=== PATIENT | male | born 1970 | race African-American/Black ===

== ENCOUNTER 2017-12-26 21:27 | Emergency (ER) | payer SELFPAY ==
[2017-12-26] MEDS ORDERED: ALBUTEROL SULFATE HFA (90 MCG/PUFF) 8 GM MDI (1 MDI/ER DISP) IH PRN (22:28)
[2017-12-26] MEDS ORDERED: DEXAMETHASONE 4 MG TABLET PO ONE (22:28)
[2017-12-26] MEDS ORDERED: BENZONATATE 100 MG CAPSULE PO ONE (22:28)
--- NOTE | 2017-12-26 23:40 | ER Document Report ---
ED General - General Chief Complaint: Cough Stated Complaint: COUGH, DIFFICULTY BREATHING Time Seen by Provider: 12/26/17 22:26 Notes: Patient is a 47-year-old male with past medical history of hypertension who presents with several days of cough. He reports that sometimes he coughs so vigorously he feels like he cannot breathe. Patient states that symptoms came on relatively abruptly and have been constant since that time. Nothing improves or worsens his symptoms. He denies a history of similar symptoms in the past. Admits to occasional tobacco use but denies any formal diagnosis of COPD or asthma in the past. He has not seen his primary care doctor regarding today's concerns. He denies any associated fever, headache, vomiting, diarrhea or altered mental status. TRAVEL OUTSIDE OF THE [place] IN LAST 30 DAYS: No - Related Data Allergies/Adverse Reactions: No Known Allergies Allergy (Unverified 12/22/14 21:16) Past Medical History - General Information source: Patient - Social History Smoking Status: Current Some Day Smoker Frequency of alcohol use: None Drug Abuse: None Lives with: Alone Family History: Reviewed & Not Pertinent Patient has suicidal ideation: No Patient has homicidal ideation: No - Past Medical History Cardiac Medical History: Reports: Hx Hypercholesterolemia, Hx Hypertension Endocrine Medical History: Reports: Hx Diabetes Mellitus Type 1 Renal/ Medical History: Denies: Hx Peritoneal Dialysis - Immunizations Hx Diphtheria, Pertussis, Tetanus Vaccination: Yes Review of Systems - Review of Systems Notes: Constitutional: Negative for fever. HENT: Negative for sore throat. Eyes: Negative for visual changes. Cardiovascular: Negative for chest pain. Respiratory: Positive for persistent cough and shortness of breath Gastrointestinal: Negative for abdominal pain, vomiting or diarrhea. Genitourinary: Negative for dysuria. Musculoskeletal: Negative for back pain. Skin: Negative for rash. Neurological: Negative for headaches, weakness or numbness. 10 point ROS negative except as marked above and in HPI. Physical Exam - Vital signs Vitals: Temp Pulse Resp BP Pulse Ox 99.1 F 110 H 20 145/85 H 96 12/26/17 21:38 12/26/17 21:38 12/26/17 21:38 12/26/17 21:38 12/26/17 21:38 Interpretation: Tachycardic Notes: PHYSICAL EXAMINATION: GENERAL: Well-appearing, well-nourished and in no acute distress. HEAD: Atraumatic, normocephalic. EYES: Pupils equal round and reactive to light, extraocular movements intact, sclera anicteric, conjunctiva are normal. ENT: nares patent, oropharynx clear without exudates. Moist mucous membranes. NECK: Normal range of motion, supple without lymphadenopathy LUNGS: Breath sounds clear to auscultation bilaterally and equal. No wheezes rales or rhonchi. HEART: Regular rate and rhythm without murmurs ABDOMEN: Soft, nontender, normoactive bowel sounds. No guarding, no rebound. No masses appreciated. EXTREMITIES: Normal range of motion, no pitting or edema. No cyanosis. NEUROLOGICAL: No focal neurological deficits. Moves all extremities spontaneously and on command. PSYCH: Normal mood, normal affect. SKIN: Warm, Dry, normal turgor, no rashes or lesions noted. Course - Re-evaluation Re-evalutation: 12/26/17 23:35 Patient presents with a clinical history and exam most consistent with an acute viral bronchitis. Patient is overall well in appearance without tachypnea, hypoxemia, tachycardia (at time of my assessment tachycardia that was noted has since resolved), or difficulty with ambulation. Breath sounds are clear bilaterally. No fever. Patient does have additional signs of upper respiratory infection including nasal congestion, sore throat, and sinus pressure. Chest x-ray without any evidence of acute infiltrate or pneumothorax. Will treat with bronchodilators, single dose of dexamethasone, and Tessalon Perles. At this time will discharge with return precautions and follow-up recommendations. Verbal discharge instructions given a the bedside and opportunity for questions given. Medication warnings reviewed. Patient is in agreement with this plan and has verbalized understanding of return precautions and the need for primary care follow-up in the next 24-72 hours. - Vital Signs Vital signs: Temp Pulse Resp BP Pulse Ox 98.9 F 94 18 137/81 H 95 12/27/17 00:04 12/27/17 00:04 12/27/17 00:04 12/27/17 00:04 12/27/17 00:04 - Diagnostic Test Radiology reviewed: Image reviewed, Reports reviewed Radiology results interpreted by me: 12/26/17 23:37 Chest x-ray: No acute infiltrate or pneumothorax Discharge - Discharge Clinical Impression: Persistent cough Acute bronchitis Qualifiers: Bronchitis organism: unspecified organism Qualified Code(s): J20.9 - Acute bronchitis, unspecified Condition: Good Disposition: HOME, SELF-CARE Additional Instructions: You were seen for symptoms most consistent with bronchitis. This can take up to 12 weeks to fully resolve. This is generally due to a viral infection. Please follow-up with your primary doctor in the next 2-3 days. Return if you develop worsening cough, vomiting, fever >100.4, pass out, begin coughing blood, or have any other symptoms that are concerning to you. Please use the medications prescribed today as directed. Prescriptions: Benzonatate [Tessalon Perles 100 mg Capsule] 100 mg PO Q8HP PRN #40 capsule PRN Reason:
[2017-12-27 00:06] VITALS: BP 137/81
--- NOTE | 2017-12-27 00:14 | RADIOLOGY REPORT (SQ) ---
EXAM DESCRIPTION: CHEST SINGLE VIEW CLINICAL HISTORY: 47 years Male, cough, sob COMPARISON: 12/22/17. NUMBER OF VIEWS/TECHNIQUE: 1/AP LIMITATIONS: None. FINDINGS: Normal lung volume, clear parenchyma, normal cardiac silhouette, and intact bony thorax. IMPRESSION: No acute cardiopulmonary findings.
== END 2017-12-26 23:55 | disposition home or self-care (01) ==
LOC: ER 21:27
DX: J20.9 Acute bronchitis, unspecified (principal); R05 Cough; R06.02 Shortness of breath; I10 Essential (primary) hypertension; F17.200 Nicotine dependence, unspecified, uncomplicated
CPT/HCPCS: 99283; 71045; J3490

== ENCOUNTER 2017-12-29 08:59 | Emergency (ER) | payer SELFPAY ==
[2017-12-29] MEDS ORDERED: KETOROLAC TROMETHAMINE INJ/PF 30 MG/1 ML SDV IV ONE (09:48)
[2017-12-29] MEDS ORDERED: NORMAL SALINE 1000 ML 1,000 ML IV ONE (09:48)
--- NOTE | 2017-12-29 09:49 | ER Document Report ---
ED Medical Screen (RME) - General Chief Complaint: Productive Cough Stated Complaint: COUGH,NUMBNESS Time Seen by Provider: 12/29/17 09:48 Notes: Patient states he was seen here present 2 weeks ago and diagnosed with bronchitis. He states he was given an inhaler but this is making it worse. He states he continues to cough up blood and has generalized body aches. TRAVEL OUTSIDE OF THE [place] IN LAST 30 DAYS: No - Related Data Allergies/Adverse Reactions: No Known Allergies Allergy (Verified 12/29/17 09:03) Past Medical History - Social History Frequency of alcohol use: Social Drug Abuse: None - Past Medical History Cardiac Medical History: Reports: Hx Hypercholesterolemia, Hx Hypertension Endocrine Medical History: Reports: Hx Diabetes Mellitus Type 1 Renal/ Medical History: Denies: Hx Peritoneal Dialysis - Immunizations Hx Diphtheria, Pertussis, Tetanus Vaccination: Yes Physical Exam - Vital signs Vitals: Temp Pulse Resp BP Pulse Ox 98.7 F 104 H 20 137/89 H 97 12/29/17 09:16 12/29/17 09:16 12/29/17 09:16 12/29/17 09:16 12/29/17 09:16 Course - Vital Signs Vital signs: Temp Pulse Resp BP Pulse Ox 98.7 F 104 H 20 137/89 H 97 12/29/17 09:16 12/29/17 09:16 12/29/17 09:16 12/29/17 09:16 12/29/17 09:16
[2017-12-29 10:18] LABS: ABSOLUTE EOSINOPHILS # (AUTO) 0.2 10^3/uL (0.0-0.6); ABSOLUTE MONOCYTES (AUTO) 0.8 10^3/uL (0.1-1.4); ABSOLUTE NEUT (AUTO) 7.3 10^3/uL (1.7-8.2); BASOPHILS % (AUTO) 0.3 % (0-2); EOSINOPHILS % (AUTO) 1.6 % (0-6); HEMATOCRIT 43.4 % (37.9-51.0); HEMOGLOBIN 14.5 g/dL (13.5-17.0); LYMPHOCYTES % (AUTO) 19.6 % (13-45); MEAN CORPUSCULAR HEMOGLOBIN 29.3 pg (27.0-33.4); MEAN CORPUSCULAR HGB CONC 33.3 g/dL (32.0-36.0); MEAN CORPUSCULAR VOLUME 88 fl (80-97); MONOCYTES % (AUTO) 7.6 % (3-13); PLATELET COUNT 327 10^3/uL (150-450); RED BLOOD COUNT 4.94 10^6/uL (4.35-5.55); RED CELL DISTRIBUTION WIDTH 14.4 % (11.5-14.0); SEGMENTED NEUTROPHILS % (AUTO) 70.9 % (42-78); TOTAL CELLS COUNTED % (AUTO) 100 %; WHITE BLOOD COUNT 10.2 10^3/uL (4.0-10.5)
--- NOTE | 2017-12-29 10:23 | RADIOLOGY REPORT (SQ) ---
EXAM DESCRIPTION: CHEST PA/LAT COMPLETED DATE/TIME: 12/29/2017 10:10 am REASON FOR STUDY: hemoptysis COMPARISON: 12/26/2017 EXAM PARAMETERS: NUMBER OF VIEWS: two views TECHNIQUE: Digital Frontal and Lateral radiographic views of the chest acquired. RADIATION DOSE: NA LIMITATIONS: none FINDINGS: LUNGS AND PLEURA: No opacities, masses or pneumothorax. No pleural effusion. MEDIASTINUM AND HILAR STRUCTURES: No masses or contour abnormalities. HEART AND VASCULAR STRUCTURES: Heart normal size. No evidence for failure. BONES: No acute findings. HARDWARE: None in the chest. OTHER: No other significant finding. IMPRESSION: NO SIGNIFICANT RADIOGRAPHIC FINDING IN THE CHEST. TECHNICAL DOCUMENTATION: JOB ID: [id number] [employer]- All Rights Reserved
[2017-12-29 10:25] LABS: APPEARANCE,URINE CLEAR; BILIRUBIN,URINE NEGATIVE (NEGATIVE); COLOR,URINE STRAW; GLUCOSE, URINE NEGATIVE (NEGATIVE); KETONES,URINE NEGATIVE (NEGATIVE); LEUKOCYTE ESTERASE,URINE NEGATIVE (NEGATIVE); NITRITE,URINE NEGATIVE (NEGATIVE); PROTEIN,URINE NEGATIVE (NEGATIVE); URINE SPECIFIC GRAVITY 1.011; UROBILINOGEN,URINE NEGATIVE mg/dL (<2.0)
[2017-12-29 10:40] LABS: ALANINE AMINOTRANSFERASE 37 U/L (21-72); ALKALINE PHOSPHATASE 70 U/L (38-126); ANION GAP 10 (5-19); ASPARTATE AMINO TRANSFERASE 19 U/L (17-59); BILIRUBIN,DIRECT 0.3 mg/dL (0.0-0.4); BILIRUBIN,TOTAL 0.3 mg/dL (0.2-1.3); BLOOD UREA NITROGEN 17 mg/dL (7-20); CALCIUM 9.6 mg/dL (8.4-10.2); CARBON DIOXIDE 27 mmol/L (22-30); CHLORIDE 105 mmol/L (98-107); GLUCOSE 150 mg/dL (75-110); POTASSIUM 4.7 mmol/L (3.6-5.0); SODIUM 141.7 mmol/L (137-145); TOTAL PROTEIN 7.3 g/dL (6.3-8.2)
--- NOTE | 2017-12-29 13:12 | ER Document Report ---
ED General - General Mode of Arrival: Ambulatory Information source: Patient TRAVEL OUTSIDE OF THE [place] IN LAST 30 DAYS: No <ANDREAS QUINTANA - Last Filed: 12/29/17 14:38> <BERNIEMISAEL David - Last Filed: 12/30/17 09:31> - General Chief Complaint: Productive Cough Stated Complaint: COUGH,NUMBNESS Time Seen by Provider: 12/29/17 09:48 Notes: Patient is a 47 year old male with a history of bronchitis presents to the emergency department complaining of cough onset around 2 weeks ago. Patients associated symptoms include generalized weakness and fatigue, body aches, and bilateral numbness in hands. Patient describes his cough as productive with blood in his sputum. Patient states he was diagnosed with Bronchitis on the and given an albuterol inhaler and further states he feel the inhaler is not helping. He states he feel has if his symptoms are worsening. Patient states the numbness in his hands were onset this morning. Patient denies any recent fall or injury, recent long trips or camping. (ANDREAS QUINTANA) - Related Data Allergies/Adverse Reactions: No Known Allergies Allergy (Verified 12/29/17 09:03) Past Medical History - Social History Smoking Status: Current Some Day Smoker Frequency of alcohol use: Social Drug Abuse: None Family History: Reviewed & Not Pertinent Patient has suicidal ideation: No Patient has homicidal ideation: No - Past Medical History Cardiac Medical History: Reports: Hx Hypercholesterolemia, Hx Hypertension Endocrine Medical History: Reports: Hx Diabetes Mellitus Type 1 - Immunizations Hx Diphtheria, Pertussis, Tetanus Vaccination: Yes <ANDREAS QUINTANA - Last Filed: 12/29/17 14:38> Review of Systems - Review of Systems Constitutional: See HPI, Malaise, Weakness EENT: No symptoms reported Cardiovascular: No symptoms reported Respiratory: See HPI, Cough, Sputum Gastrointestinal: No symptoms reported Genitourinary: No symptoms reported Male Genitourinary: No symptoms reported Musculoskeletal: See HPI Skin: No symptoms reported Hematologic/Lymphatic: No symptoms reported Neurological/Psychological: No symptoms reported -: Yes All other systems reviewed and negative <ANDREAS QUINTANA - Last Filed: 12/29/17 14:38> Physical Exam - General General appearance: Alert, Other - Appears fatigued In distress: None - HEENT Head: Normocephalic, Atraumatic Eyes: Normal Conjunctiva: Normal Pupils: PERRL Mucous membranes: Moist Pharynx: Erythema Neck: Normal - Respiratory Respiratory status: No respiratory distress Chest status: Nontender Breath sounds: Normal Chest palpation: Normal - Cardiovascular Rhythm: Regular Heart sounds: Normal auscultation Murmur: No Friction rub: No Gallop: None auscultated - Abdominal Inspection: Normal Distension: No distension Bowel sounds: Normal Tenderness: Nontender Organomegaly: No organomegaly - Back Back: Normal - Extremities General upper extremity: Normal inspection, Normal ROM General lower extremity: Normal inspection, Normal ROM - Neurological Neuro grossly intact: Yes Cognition: Normal Orientation: AAOx4 [place] Coma Scale Eye Opening: Spontaneous [place] Coma Scale Verbal: Oriented [place] Coma Scale Motor: Obeys Commands [place] Coma Scale Total: 15 Speech: Normal - Psychological Associated symptoms: Normal affect, Normal mood - Skin Skin Temperature: Warm Skin Moisture: Dry Skin Color: Normal <ANDREAS QUINTANA - Last Filed: 12/29/17 14:38> - Vital signs Vitals: Temp Pulse Resp BP Pulse Ox 98.7 F 104 H 20 137/89 H 97 12/29/17 09:16 12/29/17 09:16 12/29/17 09:16 12/29/17 09:16 12/29/17 09:16 Course - Laboratory Result Diagrams: 12/29/17 10:11 12/29/17 10:11 <ANDREAS QUINTANA - Last Filed: 12/29/17 14:38> - Laboratory Result Diagrams: 12/29/17 10:11 12/29/17 10:11 <MISAEL GIBBS - Last Filed: 12/30/17 09:31> - Re-evaluation Re-evalutation: 12/29/17 14:43 Patient found to be strep positive will provide Bicillin Advil Cold and Sinus with return precautions (MISAEL GIBBS) - Vital Signs Vital signs: Temp Pulse Resp BP Pulse Ox 98.9 F 104 H 16 139/64 H 98 12/29/17 16:09 12/29/17 09:16 12/29/17 16:09 12/29/17 16:09 12/29/17 16:09 - Laboratory Laboratory results interpreted by me: 12/29/17 12/29/17 10:11 10:11 RDW 14.4 H Glucose 150 H Discharge <ANDREAS QUINTANA - Last Filed: 12/29/17 14:38> <MISAEL GIBBS - Last Filed: 12/30/17 09:31> - Discharge Clinical Impression: Strep pharyngitis Condition: Stable Disposition: HOME, SELF-CARE Additional Instructions: Please take [id number] Advil Cold and Sinus as needed for aches and pains. Please return to the emergency department if you have any new, prolonged, or worsening symptoms. Forms: Return to Work Scribe Attestation: 12/30/17 09:31 I personally performed the services described documentation, reviewed and edited the documentation which was dictated to describe my presence, and it accurately records my words and actions. (MISAEL GIBSB) Scribe Documentation - Scribe Written by Laura:: Laura Caballero, 13:30 12/29/2017 acting as scribe for :: Pavel <ANDREAS QUINTANA - Last Filed: 12/29/17 14:38>
[2017-12-29 14:21] LABS: A TYPE INFLUENZA AG NEGATIVE (NEGATIVE); B INFLUENZA AG NEGATIVE (NEGATIVE)
[2017-12-29] MEDS ORDERED: PENICILLIN G BENZATHINE 1.2 MILLION UNIT/2 ML DISP.SYRIN IM ONE (14:30)
[2017-12-29 16:10] VITALS: BP 139/64
== END 2017-12-29 16:00 | disposition home or self-care (01) ==
LOC: ER 08:59
DX: J02.0 Streptococcal pharyngitis (principal); R05 Cough; R20.0 Anesthesia of skin; R53.1 Weakness; R53.83 Other fatigue; M79.1 Myalgia; F17.200 Nicotine dependence, unspecified, uncomplicated
CPT/HCPCS: 99284; 96372; 96361; 96374; 36415; 87880; 85025; 80053; 81001; 87804; 71046; J1885; J0561; J7030

== ENCOUNTER 2018-06-23 09:57 | Emergency (ER) | payer SELFPAY ==
[2018-06-23 10:13] VITALS: BP 140/88
[2018-06-23] MEDS ORDERED: IBUPROFEN 800 MG TABLET PO ONE (10:19)
[2018-06-23] MEDS ORDERED: LIDOCAINE 5% (700 MG) TRANSDERMAL ADH..PATCH TP ONE (10:19)
[2018-06-23] MEDS ORDERED: OXYCODONE-ACETAMINOPHEN 5-325 MG TABLET PO ONE (10:19)
--- NOTE | 2018-06-23 10:22 | ER Document Report ---
HPI - HPI Patient complains to provider of: Low back pain Onset: Yesterday Onset/Duration: Sudden Quality of pain: Achy Pain Level: 4 Context: Patient states that he was lifting a heavy bag and pulled something in his lower back area yesterday. Patient denies any radiculopathy or paresthesia. Patient denies any fever. Patient denies any history of IV drug use. Associated Symptoms: Other - Low back pain Exacerbated by: Movement Relieved by: Denies Similar symptoms previously: No Recently seen / treated by doctor: No - ROS ROS below otherwise negative: Yes Systems Reviewed and Negative: Yes All other systems reviewed and negative - CONSTITUTIONAL Constitutional: DENIES: Fever - NEURO Neurology: DENIES: Weakness - MUSCULOSKELETAL Musculoskeletal: REPORTS: Back Pain. DENIES: Extremity pain - DERM Skin Color: Normal Skin Problems: None Past Medical History - General Information source: Patient - Social History Smoking Status: Never Smoker Chew tobacco use (# tins/day): No Frequency of alcohol use: Occasional Drug Abuse: None Occupation: Foodservice Family History: Reviewed & Not Pertinent Patient has suicidal ideation: No Patient has homicidal ideation: No - Past Medical History Cardiac Medical History: Reports: Hx Hypercholesterolemia, Hx Hypertension Endocrine Medical History: Reports: Hx Diabetes Mellitus Type 1 Renal/ Medical History: Denies: Hx Peritoneal Dialysis Surgical Hx: Negative - Immunizations Hx Diphtheria, Pertussis, Tetanus Vaccination: Yes Vertical Provider Document - CONSTITUTIONAL Agree With Documented VS: Yes Exam Limitations: No Limitations General Appearance: WD/WN, No Apparent Distress Notes: PHYSICAL EXAMINATION: GENERAL: Well-appearing, well-nourished and in no acute distress. HEAD: Atraumatic, normocephalic. EYES: sclera clear, anicteric, conjunctiva are normal. ENT: nares patent, Moist mucous membranes. NECK: Normal range of motion, supple no lymphadenopathy LUNGS: respirations unlabored HEART: Regular rate and rhythm without murmurs EXTREMITIES: Normal range of motion, no pitting or edema. No cyanosis. Gait normal, pt ambulates without difficulty BACK: Right lumbar paraspinal tenderness with todayspasm, no midline tenderness , no deformities or step-offs. No CVA tenderness. NEUROLOGICAL: Cranial nerves grossly intact. Normal speech, normal gait. No saddle anesthesia. PSYCH: Normal mood, normal affect. SKIN: Warm, Dry, normal turgor, no rashes or lesions noted. - INFECTION CONTROL TRAVEL OUTSIDE OF THE [place] IN LAST 30 DAYS: No Course - Re-evaluation Re-evalutation: 06/23/18 10:20 The patient presents with low back pain without signs of spinal cord compression , cauda equina syndrome, infection, aneurysm, or other serious etiology. The patient is neurologically intact. Given the extremely risk of these diagnoses further testing and evaluation for these possibilities does not appear to be indicated at this time. Patient has been instructed to return if the symptoms worsen or change in any way. - Vital Signs Vital signs: Temp Pulse Resp BP Pulse Ox 97.7 F 105 H 18 140/88 H 98 06/23/18 10:03 06/23/18 10:03 06/23/18 10:03 06/23/18 10:03 06/23/18 10:03 Discharge - Discharge Clinical Impression: Low back strain Qualifiers: Encounter type: initial encounter Qualified Code(s): S39.012A - Strain of muscle, fascia and tendon of lower back, initial encounter Condition: Stable Disposition: HOME, SELF-CARE Instructions: Ice Packs ([facility]), Low Back Pain ([facility]), Muscle Relaxers ([facility]), Muscle Strain ([facility]), Warm Packs ([facility]) Additional Instructions: Return immediately for any new or worsening symptoms Followup with your primary care provider, call tomorrow to make a followup appointment Prescriptions: Cyclobenzaprine HCl [Flexeril 10 Mg Tablet] 10 mg PO TID #15 tablet Naproxen [Naprosyn 250 Nmg Tablet] 1 tab PO BID #14 tablet Forms: Return to Work Referrals: [facility] [Provider Group] - Follow up as needed
== END 2018-06-23 10:33 | disposition home or self-care (01) ==
LOC: ER 09:57
DX: S39.012A Strain of muscle, fascia and tendon of lower back, initial encounter (principal); X50.0XXA Overexertion from strenuous movement or load, initial encounter; I10 Essential (primary) hypertension; E10.9 Type 1 diabetes mellitus without complications
CPT/HCPCS: 99283

== ENCOUNTER 2018-10-16 14:58 | Emergency (ER) | payer SELFPAY ==
[2018-10-16] MEDS ORDERED: NORMAL SALINE 1000 ML 1,000 ML IV ONE ×2 (15:45→21:10)
[2018-10-16] MEDS ORDERED: INSULIN REG, HUMAN 100 UNIT/ML 3 ML VIAL (PYX) IV ONE (15:45)
--- NOTE | 2018-10-16 15:46 | ER Document Report ---
ED Medical Screen (RME) - General Chief Complaint: Near Syncope Stated Complaint: BACK PAIN Time Seen by Provider: 10/16/18 15:41 Notes: 48 years old male with a history of diabetes was having dizzy spell therefore present to the ED. In the ER his blood sugar was reading very high without any numbers given. He also had blurred vision. No fever chills or other constitutional symptoms. TRAVEL OUTSIDE OF THE [place] IN LAST 30 DAYS: No - Related Data Allergies/Adverse Reactions: No Known Allergies Allergy (Verified 10/16/18 15:01) Past Medical History - Past Medical History Cardiac Medical History: Reports: Hx Hypercholesterolemia, Hx Hypertension Endocrine Medical History: Reports: Hx Diabetes Mellitus Type 1 Renal/ Medical History: Denies: Hx Peritoneal Dialysis Psychiatric Medical History: Denies: Hx Depression - Immunizations Hx Diphtheria, Pertussis, Tetanus Vaccination: Yes Physical Exam - Vital signs Vitals: Temp Pulse Resp BP Pulse Ox 98.6 F 97 16 131/76 H 96 10/16/18 15:16 10/16/18 15:16 10/16/18 15:16 10/16/18 15:16 10/16/18 15:16 Course - Vital Signs Vital signs: Temp Pulse Resp BP Pulse Ox 98.6 F 97 16 131/76 H 96 10/16/18 15:16 10/16/18 15:16 10/16/18 15:16 10/16/18 15:16 10/16/18 15:16
[2018-10-16 16:32] LABS: ABSOLUTE BASOPHILS # (AUTO) 0.1 10^3/uL (0.0-0.2); ABSOLUTE EOSINOPHILS # (AUTO) 0.2 10^3/uL (0.0-0.6); ABSOLUTE LYMPHOCYTES (AUTO) 1.7 10^3/uL (0.5-4.7); ABSOLUTE MONOCYTES (AUTO) 0.6 10^3/uL (0.1-1.4); ABSOLUTE NEUT (AUTO) 6.6 10^3/uL (1.7-8.2); BASOPHILS % (AUTO) 0.6 % (0-2); EOSINOPHILS % (AUTO) 1.7 % (0-6); HEMATOCRIT 43.8 % (37.9-51.0); HEMOGLOBIN 14.1 g/dL (13.5-17.0); LYMPHOCYTES % (AUTO) 18.5 % (13-45); MEAN CORPUSCULAR HEMOGLOBIN 28.7 pg (27.0-33.4); MEAN CORPUSCULAR HGB CONC 32.1 g/dL (32.0-36.0); MEAN CORPUSCULAR VOLUME 90 fl (80-97); MONOCYTES % (AUTO) 6.8 % (3-13); PLATELET COUNT 283 10^3/uL (150-450); RED BLOOD COUNT 4.89 10^6/uL (4.35-5.55); RED CELL DISTRIBUTION WIDTH 13.6 % (11.5-14.0); SEGMENTED NEUTROPHILS % (AUTO) 72.4 % (42-78); TOTAL CELLS COUNTED % (AUTO) 100 %; WHITE BLOOD COUNT 9.1 10^3/uL (4.0-10.5)
[2018-10-16 16:45] LABS: APPEARANCE,URINE CLEAR; BILIRUBIN,URINE NEGATIVE (NEGATIVE); COLOR,URINE COLORLESS; GLUCOSE, URINE >=500 mg/dL (NEGATIVE); KETONES,URINE NEGATIVE (NEGATIVE); LEUKOCYTE ESTERASE,URINE NEGATIVE (NEGATIVE); NITRITE,URINE NEGATIVE (NEGATIVE); PROTEIN,URINE NEGATIVE (NEGATIVE); URINE SPECIFIC GRAVITY 1.029; UROBILINOGEN,URINE NEGATIVE mg/dL (<2.0)
[2018-10-16 16:58] LABS: VENOUS BLOOD BASE EXCESS 3.1 mmol/L; VENOUS BLOOD HCO3 30.6 mmol/L (20-32); VENOUS BLOOD PCO2 59.1 mmHg (35-63); VENOUS BLOOD PH 7.33 (7.30-7.42)
[2018-10-16 17:32] LABS: URINE AMPHETAMINES SCREEN NEGATIVE; URINE BARBITURATES SCREEN NEGATIVE; URINE BENZODIAZEPINES SCREEN NEGATIVE; URINE COCAINE SCREEN UNCONFIRMED POSITIVE; URINE MARIJUANA (THC) SCREEN NEGATIVE; URINE METHADONE SCREEN NEGATIVE; URINE PHENCYCLIDINE SCREEN NEGATIVE
--- NOTE | 2018-10-16 17:37 | ER Document Report ---
ED Syncope and Near Syncope - General Chief Complaint: Near Syncope Stated Complaint: BACK PAIN Time Seen by Provider: 10/16/18 15:41 Mode of Arrival: Ambulatory Information source: Patient Notes: Patient is a 48-year-old male who comes emergency room stating that he was standing at work and his boss came over and told him he did not look good. Patient states he was just standing or gazing off into space and does not remember what he was looking at or actually what he was doing at the time. He states his boss told me been standard 5 minutes looking at nothing. He also states that he has been feeling lightheaded and sleepy for the past couple of days. He works as a cook at a local restaurant. In triage patient's Accu-Chek was "too high to read". The physician triage wrote orders and send patient back here to be worked up. Patient states he was recently admitted to the hospital with the same kind of his situation. TRAVEL OUTSIDE OF THE [place] IN LAST 30 DAYS: No - HPI Patient complains to provider of: Nearly fainting Episode witnessed (by whom): Yes - Patient's boss Symptoms prior to episode: Lightheaded Duration of preceeding symptoms: Unknown Position/Activity at time of episode: Standing Details of activity: See HPI Quality of pain: No pain Severity: Severe Pain Level: 4 Context: Almost passed out Current symptoms: Lightheaded - Sleepy, Other - Sleepy D-stick result: Too high to read Similar symptoms previously: Yes Recently seen / treated by doctor: No - Related Data Allergies/Adverse Reactions: No Known Allergies Allergy (Verified 10/16/18 15:01) Past Medical History - General Information source: Patient - Social History Smoking Status: Current Every Day Smoker Cigarette use (# per day): Yes Chew tobacco use (# tins/day): No Smoking Education Provided: Yes Frequency of alcohol use: Occasional Drug Abuse: Cocaine Occupation: Cook Family History: Reviewed & Not Pertinent Patient has suicidal ideation: No Patient has homicidal ideation: No - Past Medical History Cardiac Medical History: Reports: Hx Hypercholesterolemia, Hx Hypertension Endocrine Medical History: Reports: Hx Diabetes Mellitus Type 1, Hx Diabetes Mellitus Type 2 Renal/ Medical History: Denies: Hx Peritoneal Dialysis Psychiatric Medical History: Denies: Hx Depression - Immunizations Hx Diphtheria, Pertussis, Tetanus Vaccination: Yes Review of Systems - Review of Systems Constitutional: See HPI, Malaise EENT: No symptoms reported Cardiovascular: No symptoms reported Respiratory: No symptoms reported Gastrointestinal: No symptoms reported Genitourinary: No symptoms reported Male Genitourinary: No symptoms reported Musculoskeletal: No symptoms reported Skin: No symptoms reported Hematologic/Lymphatic: No symptoms reported Neurological/Psychological: No symptoms reported -: Yes All other systems reviewed and negative Physical Exam - Vital signs Vitals: Temp Pulse Resp BP Pulse Ox 98.6 F 97 16 131/76 H 96 10/16/18 15:16 10/16/18 15:16 10/16/18 15:16 10/16/18 15:16 10/16/18 15:16 Interpretation: Hypertensive - Notes Notes: PHYSICAL EXAMINATION: GENERAL: Patient is a well-nourished well-developed 48-year-old male no apparent distress on physical examination however patient is very somnolent. He falls asleep while you are talking to him and actually falls asleep when you are examining him. Is difficult time concentrating currently. HEAD: Atraumatic, normocephalic. EYES: Pupils equal round and reactive to light, extraocular movements intact, sclera anicteric, conjunctiva are normal. ENT: Nares patent, oropharynx clear without exudates. Dry mucous membranes. NECK: Normal range of motion, supple without lymphadenopathy LUNGS: Breath sounds clear to auscultation bilaterally and equal. No wheezes rales or rhonchi. HEART: Regular rate and rhythm without murmurs ABDOMEN: Soft, nontender, nondistended abdomen. No guarding, no rebound. No masses appreciated. Musculoskeletal: Normal range of motion, no pitting or edema. No cyanosis. NEUROLOGICAL: Normal speech, normal gait. Normal sensory, motor exams PSYCH: Normal mood, normal affect. SKIN: Warm, Dry, normal turgor, no rashes or lesions noted. Course - Re-evaluation Re-evalutation: 10/16/18 22:15 Patient state emergency room is been fairly uneventful. After receiving a liter of fluids and 10 units of insulin IV patient started to respond waking up more talking better. We will not be able to fully know the extent of patient's hyperglycemia because the first blood work sent up was hemolyzed it took a while for them to call down until as this is the second set was hemolyzed again took him a while to call down and tell us the third set was hemolyzed when they decided to send out a accordion maker to finally get is a draw. So the fourth time patient had already received his liter of fluids and the IV insulin probably had been in good hour to an hour and a half so when I did him he was 570. So we were definitely better than previous although I cannot explain what previous was. Recheck albumin a few hours later showed that he was 370. Patient was getting antsy and I discussed the case with Dr. Rodriguez who agreed that once patient's blood sugar was down below 300 we could go and discharge him home as long as his gap was okay. Patient's gap was 13 when he was okay with that I went back and talked to the patient and he did inform me that he had been taking 2 medications for his diabetes. When I went back and checked on patient's discharge on sometime in July it did not show but the Glucophage. He was also started on atorvastatin so I believe that was the other pill he was thinking about. I also printed out the discharge paperwork that was given to him by the hospitalist on his leaving here the last time. And it had on here that patient Was discharged home on Lantus was written for insulin lancets and needles and syringes. And Glucophage 1000 mg twice a day. Along with the atorvastatin. When I went in and read this to the patient he disagreed with me stating that he only got the Glucophage. He states that that was all that was on the prescription and that no one told him anything about doing insulin and he has no idea how to do it to start with and he is scared of needles. The hospitalist actually had written that patient is insulin norma and ideally would go home initially on 40 units of Lantus daily but decided to keep him at 30 units daily until he can follow-up with his primary care doctor. Patient currently does not have a primary care physician I have informed him about the [facility] and patient is very interested in this. I informed patient that he is getting the tenisha by having someone around who can wake him up and get him to the ER. I explained to him sugars of 1000 are not conducive to her normal living. I have also informed him that this is something that can kill him. Patient seems surprised by this. At this point he states he will go to the clinic on Friday. He will watch his diet between now and then and he will continue to take his metformin. I decided to do at this route because patient will not go until the insulin until he is taught how to use it and how to inject himself that we do not have the opportunity to do ER. He will monitor his blood sugars and he will return here if he has any concerns at all especially if his blood sugars get above 300. 10/16/18 22:22 After reconsidering about or thinking about the patient's blood sugars going up and him going to the clinic on Friday I have reconsidered and I think I will start patient on a little glipizide probably 2.5 mg in the morning just as a secondary precaution and warned patient that if he does not eat with this he can go hypoglycemic. This may be another option patient has been needs to discuss it with the physician is going to be monitoring him. 10/16/18 22:30 Patient was trending down on his blood sugars and was down to 370 I agreed to stay and have another liter of fluids and 5 subcu of insulin and eat a meal. I ordering a meal verbally patient was inadvertently given a regular diet and in the box was a box of orange juice and patient decided to drink it. The Accu- Chek 1 hour later was 450 and patient is getting irate about staying in the hospital right now. I had a long talk with him and he is adamant that he is leaving. Given that patient is going to leave one way or the other and given that he has a point in that patient was given food and he thought he could eat and drink I am going to go ahead and discharge him home after giving him 5 more units subcu and having him promised to watch his diet. Also been started on 2.5 of glipizide once in the morning to give a little extra cushion. I explained to him though that this is 1 of those medications that can go hypoglycemic if he is not careful to. Given that he is such a noncompliant hypoglycemic person I believe he will be fine on the 2.5 until he can get to the [facility]. Also asked him if he would stop back by tomorrow and have his blood sugar checked and he said he think about it. - Vital Signs Vital signs: Temp Pulse Resp BP Pulse Ox 98.6 F 97 15 124/76 96 10/16/18 15:16 10/16/18 15:16 10/16/18 20:00 10/16/18 19:00 10/16/18 20:00 - Laboratory Result Diagrams: 10/16/18 16:23 10/16/18 18:37 Laboratory results interpreted by me: 10/16/18 10/16/18 16:24 18:37 Sodium 136.8 L Chloride 97 L Glucose 540 H* AST 14 L ALT 17 L Alkaline Phosphatase 178 H Urine Glucose (UA) >=500 H Discharge - Discharge Clinical Impression: Hyperosmolar non-ketotic state in patient with type 2 diabetes mellitus, Hyperglycemia without ketosis Condition: Stable Disposition: HOME, SELF-CARE Instructions: Hyperglycemia ([facility]) Additional Instructions: As we discussed you are walking a fine line with your blood sugars being so high. If you continue to go this route you are 1 day not going to wake up from this induced coma of hyperglycemia. You admit even to us that you had no idea why you are staring off into space and why you are constantly falling asleep sitting there. Ideally I wanted your sugars to be down around 300 before we could discharge to home. You were trending that way until you or mistakenly given a box of orange juice to drink. And because you are getting upset I am not going to make you signed out AGAINST MEDICAL ADVICE because you are trending down nicely. I am going to put you on another pill is called glipizide is in all the medication that works fairly well in conjunction with your Metformin. So you need to continue taking metformin 1000 mg twice a day and the glipizide is 2.5 mg each morning. Please help with [facility] as soon as possible which should be Friday. Should you have any concerns or problems return to ER for a recheck if nothing else just to check your blood sugars. Highly suggest that you invest in a another glucometer or find the one that she misplaced. This is your lifesaving machine. When you get in the sugars in excess of 5 and 6 700 this will save your life. Prescriptions: Glipizide [Glipizide Xl] 2.5 mg PO DAILY #30 tab.er.24 Metformin HCl [Glucophage 500 mg Tablet] 1,000 mg PO BID #60 tablet Forms: Return to Work Referrals: [facility] [NO LOCAL MD] - Follow up as needed
[2018-10-16 19:05] LABS: ALANINE AMINOTRANSFERASE 17 U/L (21-72); ALBUMIN 3.7 g/dL (3.5-5.0); ALKALINE PHOSPHATASE 178 U/L (38-126); ANION GAP 13 (5-19); ASPARTATE AMINO TRANSFERASE 14 U/L (17-59); BILIRUBIN,DIRECT 0.2 mg/dL (0.0-0.4); BILIRUBIN,TOTAL 0.3 mg/dL (0.2-1.3); BLOOD UREA NITROGEN 18 mg/dL (7-20); CALCIUM 9.2 mg/dL (8.4-10.2); CARBON DIOXIDE 27 mmol/L (22-30); CHLORIDE 97 mmol/L (98-107); POTASSIUM 4.7 mmol/L (3.6-5.0); SODIUM 136.8 mmol/L (137-145); TOTAL PROTEIN 6.5 g/dL (6.3-8.2)
[2018-10-16 19:14] LABS: GLUCOSE 540 mg/dL (75-110)
[2018-10-16] MEDS ORDERED: INSULIN REG, HUMAN 100 UNIT/ML 3 ML VIAL (PYX) SUBCUT STA ×2 (21:10→22:41)
[2018-10-16 22:55] VITALS: BP 125/80
== END 2018-10-16 22:59 | disposition home or self-care (01) ==
LOC: ER 14:58
DX: E11.00 Type 2 diabetes mellitus with hyperosmolarity without nonketotic hyperglycemic-hyperosmolar coma (NKHHC) (principal); E11.65 Type 2 diabetes mellitus with hyperglycemia; M54.9 Dorsalgia, unspecified; R42 Dizziness and giddiness; F17.210 Nicotine dependence, cigarettes, uncomplicated; I10 Essential (primary) hypertension
CPT/HCPCS: 99284; 96360; 96361; 36415; 82962; 85025; 80053; 81001; 80307; 82803; J1815; J7030